=== PATIENT | female | born 1990 | race Caucasian/White ===

== ENCOUNTER 2022-03-31 21:26 | Emergency (ER) | payer MEDICAID ==
[~2022-03-31] VITALS: Ht 152.4 cm; Wt 65.8 kg
[2022-03-31 21:35] VITALS: BP_SYST 151
--- NOTE | 2022-03-31 21:35 | NUR ---
Patient to ER bed 7 to gown for evaluation. Side rails up. Report given to Debby LARA.
--- NOTE | 2022-03-31 21:36 | NUR ---
ER at bedside examining patient.
[2022-03-31] MEDS ORDERED: NACL 0.9% 1,000 ML IV ONE (21:45)
--- NOTE | 2022-03-31 21:46 | NUR ---
XRAY AT BEDSIDE.
--- NOTE | 2022-03-31 22:00 | NUR ---
LAB AT BEDSIDE OBTAINING LABS
--- NOTE | 2022-03-31 22:15 | NUR ---
PATIENT TAKEN TO ULTRASOUND AT THIS TIME.
[2022-03-31 22:31] LABS: BASOPHILS % (AUTO) 0.5 % (0.0-2.0); EOSINOPHILS % (AUTO) 0.4 % (0.0-4.0); HEMATOCRIT 33.7 % (36-48); HEMOGLOBIN 11.3 g/dL (12.0-16.0); LYMPHOCYTES # (AUTO) 1.8 K/uL (1.0-5.5); LYMPHOCYTES % (AUTO) 23.4 % (20.5-51.5); MEAN CORPUSCULAR HEMOGLOBIN 26 pg (27-31); MEAN CORPUSCULAR HGB CONC 34 % (32-36); MEAN CORPUSCULAR VOLUME 79 fL (79.0-98.0); MONOCYTES # (AUTO) 0.6 K/uL (0.0-1.0); MONOCYTES % (AUTO) 8.2 % (1.7-9.3); NEUTROPHILS # (AUTO) 5.3 K/uL (1.8-7.7); NEUTROPHILS % (AUTO) 67.5 % (40.0-70.0); PLATELET COUNT (AUTO) 150 K/uL (130-430); RED BLOOD CELL COUNT(AUTO) 4.27 MIL/uL (4.2-6.2); RED CELL DISTRIBUTION WIDTH 13.3 % (9.0-15.0); WHITE BLOOD COUNT (AUTO) 7.8 K/uL (4.8-10.8)
[2022-03-31 22:41] LABS: ANION GAP 10 (5-15); CALCIUM 7.8 mg/dL (8.4-11.0); CHLORIDE 105 mmol/L (98-107); CREATININE 0.43 mg/dL (0.55-1.30); GFR AFRICAN AMERICAN 222 mL/min (>90); GLUCOSE 107 mg/dL (70-99); POTASSIUM 3.1 mmol/L (3.5-5.1); SODIUM SERUM 138 mmol/L (136-145); UREA NITROGEN, BLOOD 10 mg/dL (8-21)
[2022-03-31 22:56] LABS: ALANINE AMINOTRANSFERASE 15 U/L (12-78); ALBUMIN 2.5 g/dL (3.4-4.8); FREE T4 (FREE THYROXINE) 3.6 ng/dl (0.8-1.5); THYROID STIMULATING HORMONE 0.01 uIu/mL (0.36-3.74)
[2022-03-31 23:17] LABS: INR 1.1 (0.8-1.2); PROTHROMBIN TIME 10.8 SECS (9.5-12.5)
[2022-03-31 23:20] LABS: ASPARTATE AMINOTRANSFERASE 11 U/L (10-37); TOTAL BILIRUBIN 0.2 mg/dL (0.0-1.0)
--- NOTE | 2022-03-31 23:55 | NUR ---
DR. DAWN SPEAKING TO PATIENT IN ROOM.
[2022-04-01] MEDS ORDERED: NACL 0.9% 1,000 ML IV ONE (00:15)
--- NOTE | 2022-04-01 00:16 | NUR ---
Called Dr. Ismael Roberts .
[2022-04-01 00:44] VITALS: BP_SYST 133
--- NOTE | 2022-04-01 01:00 | NUR ---
Patient given written and verbal discharge instructions and verbalizes understanding. ER MD discussed with patient the results and treatment provided. Patient in stable condition. ID arm band removed. IV catheter removed intact and dressing applied, no active bleeding. Rx of N/A given. Patient educated on pain management and to follow up with PMD. Pain Scale . Opportunity for questions provided and answered. Medication side effect fact sheet provided.
== END 2022-04-01 00:59 | disposition left against medical advice (07) ==
LOC: SED 21:26
DX: O99.282 Endocrine, nutritional and metabolic diseases complicating pregnancy, second trimester (principal); O99.412 Diseases of the circulatory system complicating pregnancy, second trimester; E07.9 Disorder of thyroid, unspecified; Z88.0 Allergy status to penicillin; Z3A.15 15 weeks gestation of pregnancy
CPT/HCPCS: 99285; 93970; 96360; 76805; 71045; 80053; 82550; 83880; 84439; 84443; 85025; 85379; 85610; 85730; 84484; 36415; 93005; 96361; J7030 ×2

== ENCOUNTER 2022-04-16 22:05 | Emergency (ER) | payer MEDICAID ==
[~2022-04-16] VITALS: Ht 154.9 cm; Wt 64.9 kg
[2022-04-16 22:05] VITALS: BP_SYST 101
[2022-04-16] MEDS ORDERED: NACL 0.9% 1,000 ML IV ONE (22:30)
[2022-04-17 00:18] LABS: FREE T4 (FREE THYROXINE) 4.1 ng/dl (0.8-1.5); THYROID STIMULATING HORMONE < 0.01 uIu/mL (0.36-3.74)
[2022-04-17 00:22] LABS: HCG,QUANTITATIVE 11105 mIU/ML (0-6)
[2022-04-17 00:54] LABS: BILIRUBIN,URINE NEGATIVE (NEGATIVE); CLARITY/URINE CLEAR (CLEAR); COLOR,URINE YELLOW (YELLOW); GLUCOSE,URINE NEGATIVE (NEGATIVE); KETONES,URINE 2+ (NEGATIVE); LEUKOCYTE ESTERASE ,URINE NEGATIVE (NEGATIVE); NITRITE, URINE NEGATIVE (NEGATIVE); PROTEIN URINE 2+ (NEGATIVE); UROBILINOGEN,URINE 0.2 (0.2-1.0)
[2022-04-17 00:55] LABS: BLOOD, URINE TRACE (NEGATIVE)
[2022-04-17 00:58] LABS: BACTERIA,URINE None Seen /HPF (None Seen); RBC,URINE 0-3 /HPF (0-3); WBC,URINE NONE SEEN /HPF (0-3)
[2022-04-17 01:00] LABS: HYALINE CASTS, URINE None Seen /LPF (None Seen)
[2022-04-17 01:23] VITALS: BP_SYST 101
== END 2022-04-17 01:23 | disposition left against medical advice (07) ==
LOC: SED 22:05
DX: O99.282 Endocrine, nutritional and metabolic diseases complicating pregnancy, second trimester (principal); Z3A.17 17 weeks gestation of pregnancy
CPT/HCPCS: 99285; 96360; 76805; 81000; 84702; 84439; 84443; 36415; 93005; J7030

== ENCOUNTER 2023-02-27 02:30 | Emergency (ER) | payer MEDICAID ==
[~2023-02-27] VITALS: Ht 154.9 cm; Wt 66.2 kg
[2023-02-27 02:35] VITALS: BP_SYST 114
--- NOTE | 2023-02-27 02:35 | NUR ---
Patient triaged and placed in ER bed 4 for evaluation. Vital signs updated, denied any acute distress at this time. Report given to ANTONIO LARA for continuity of care. Instructed to notify ED staff for any changes in condition or worsening of symptoms. Patient verbalized understanding.
--- NOTE | 2023-02-27 02:50 | NUR ---
Dr. SINGLETON at bedside examining the patient.
[2023-02-27] MEDS ORDERED: NACL 0.9% 1,000 ML IV ONE ×2 (03:00→03:45)
--- NOTE | 2023-02-27 03:00 | NUR ---
FIRST CONTACT WITH PT. ASSESSMENT COMPLETED. AWAITING ADDITIONAL MD EVAL AND ORDERS.
[2023-02-27] MEDS ORDERED: PROPRANOLOL 1 MG/ML IVP ONE (04:45)
--- NOTE | 2023-02-27 05:00 | NUR ---
AT BEDSIDE FOR EVALUATION. NEW RUFINO ORDER.
--- NOTE | 2023-02-27 05:38 | NUR ---
Patient given written and verbal discharge instructions and verbalizes understanding. ER MD SWIFT discussed with patient the results and treatment provided. Patient in stable condition. ID arm band removed. IV catheter removed intact and dressing applied, no active bleeding. Rx of NONE given. Patient educated on pain management and to follow up with PMD. Pain Scale 0 . Opportunity for questions provided and answered. Medication side effect fact sheet provided.
[2023-02-27 05:41] VITALS: BP_SYST 118
== END 2023-02-27 05:38 | disposition home or self-care (01) ==
LOC: SED 02:30
DX: R00.0 Tachycardia, unspecified (principal); R00.2 Palpitations; R42 Dizziness and giddiness; R82.998 Other abnormal findings in urine; Z88.0 Allergy status to penicillin; Z79.899 Other long term (current) drug therapy
CPT/HCPCS: 99283; 96374; 96361; 93005; J1800; J7030

== ENCOUNTER 2023-03-17 22:24 | Emergency (ER) | payer MEDICAID ==
[~2023-03-17] VITALS: Ht 149.9 cm; Wt 65.8 kg
[2023-03-17 22:25] VITALS: BP_SYST 133; PULSE 111; RESP 18; TEMP 98.1; O2SAT 99
[2023-03-17] MEDS ORDERED: PROPRANOLOL 1 MG/ML IVP ONE (23:00)
[2023-03-17] MEDS ORDERED: NACL 0.9% 1,000 ML IV ONE (23:00)
[2023-03-17 23:09] LABS: BASOPHILS % (AUTO) 0.3 % (0.0-2.0); EOSINOPHILS % (AUTO) 1.1 % (0.0-4.0); HEMATOCRIT 35.9 % (36-48); HEMOGLOBIN 11.4 g/dL (12.0-16.0); LYMPHOCYTES % (AUTO) 46.6 % (20.5-51.5); MEAN CORPUSCULAR HEMOGLOBIN 25 pg (27-31); MEAN CORPUSCULAR HGB CONC 32 % (32-36); MEAN CORPUSCULAR VOLUME 79 fL (79.0-98.0); MONOCYTES # (AUTO) 0.5 K/uL (0.0-1.0); MONOCYTES % (AUTO) 12.1 % (1.7-9.3); NEUTROPHILS # (AUTO) 1.7 K/uL (1.8-7.7); NEUTROPHILS % (AUTO) 39.9 % (40.0-70.0); PLATELET COUNT (AUTO) 173 K/uL (130-430); RED BLOOD CELL COUNT(AUTO) 4.55 MIL/uL (4.2-6.2); RED CELL DISTRIBUTION WIDTH 13.6 % (9.0-15.0); WHITE BLOOD COUNT (AUTO) 4.3 K/uL (4.8-10.8)
[2023-03-17 23:30] LABS: ANION GAP 8 (5-15); CALCIUM 8.4 mg/dL (8.4-11.0); CHLORIDE 104 mmol/L (98-107); GFR AFRICAN AMERICAN 334 mL/min (>90); GLUCOSE 95 mg/dL (74-106); UREA NITROGEN, BLOOD 10 mg/dL (8-21)
[2023-03-17 23:35] LABS: FREE T4 (FREE THYROXINE) 9.8 ng/dL (0.6-1.6); THYROID STIMULATING HORMONE < 0.01 uIu/mL (0.34-4.82)
[2023-03-17] MEDS ORDERED: METH-374 PO (23:58)
[2023-03-18 00:23] VITALS: BP_SYST 126; PULSE 109; RESP 15; TEMP 98.1; O2SAT 99
[2023-03-19] MEDS ORDERED: IBUP-1969 PO (23:07)
== END 2023-03-18 00:23 | disposition home or self-care (01) ==
LOC: SED 22:24
DX: R00.0 Tachycardia, unspecified (principal); R00.2 Palpitations; E05.90 Thyrotoxicosis, unspecified without thyrotoxic crisis or storm; F41.9 Anxiety disorder, unspecified; R06.02 Shortness of breath; Z88.0 Allergy status to penicillin; Z79.899 Other long term (current) drug therapy
CPT/HCPCS: 99283; 96374; 96361; 80048; 84439; 84443; 85025; 36415; J1800; J7030

== ENCOUNTER 2023-03-19 21:42 | Emergency (ER) | payer MEDICAID ==
[~2023-03-19] VITALS: Ht 149.9 cm; Wt 65.3 kg
[~2023-03-19 21:42] MED LIST: METH-374 PO
[2023-03-19 22:29] VITALS: BP_SYST 135; PULSE 110; RESP 18; TEMP 98.8; O2SAT 99
--- NOTE | 2023-03-19 22:36 | NUR ---
Patient triaged and placed in waiting room. VSS and patient appears in no acute distress at this time. Accompanied by self, awaiting available bed, and MD notified of need for MSE.
--- NOTE | 2023-03-19 22:42 | NUR ---
PT BIB FRIEND FROM HOME C/O LT FOOT PAIN AND CRACKED ACRYLIC NAIL. PT STATES PAIN IS 8/10 AND IS THROBBING. PT STATES DIFFICULTY MOVING FOOT. PT HX OF HYPOTHYROIDISM. PT VSS RESTING IN HALLWAY
--- NOTE | 2023-03-19 22:45 | NUR ---
ER at bedside examining patient.
--- NOTE | 2023-03-19 22:47 | NUR ---
PT TO RADIOLOGY FOR X RAY
--- NOTE | 2023-03-19 22:58 | NUR ---
PATIENT MOVED TO BED 2
[2023-03-19] MEDS ORDERED: IBUP-1969 PO (23:07)
--- NOTE | 2023-03-19 23:16 | NUR ---
WOUND DRESSED WITH 2X2S, ROLLED GAUZE AND COBAN. PATIEN TOLERATED WELL
--- NOTE | 2023-03-19 23:20 | NUR ---
[employer]G SHOE TO AFFECTED FOOT.
[2023-03-19 23:52] VITALS: BP_SYST 135; PULSE 110; RESP 18; TEMP 98.8; O2SAT 99
--- NOTE | 2023-03-19 23:54 | NUR ---
Patient given written and verbal discharge instructions and verbalizes understanding. ER MD discussed with patient the results and treatment provided. Patient in stable condition. ID arm band removed. Rx of IBUPROFEN given. Patient educated on SUBUNGUAL HEMATOMA AND CRUSH FOOT INJURY and to follow up with PMD. Pain Scale 4. Opportunity for questions provided and answered. Medication side effect fact sheet provided.
== END 2023-03-19 23:50 | disposition home or self-care (01) ==
LOC: SED 21:42
DX: S90.212A Contusion of left great toe with damage to nail, initial encounter (principal); S97.82XA Crushing injury of left foot, initial encounter; Z88.0 Allergy status to penicillin; Z79.899 Other long term (current) drug therapy; W20.8XXA Other cause of strike by thrown, projected or falling object, initial encounter; Y93.G3 Activity, cooking and baking; Y92.89 Other specified places as the place of occurrence of the external cause; Y99.8 Other external cause status
CPT/HCPCS: 99283

== ENCOUNTER 2023-09-06 23:37 | Emergency (ER) | payer MEDICAID ==
[~2023-09-06] VITALS: Ht 149.9 cm; Wt 68.9 kg
[~2023-09-06 23:37] MED LIST changes: +IBUP-1969 PO
[2023-09-07 00:13] VITALS: BP_SYST 120; PULSE 110; RESP 18; TEMP 98.3; O2SAT 98
== END 2023-09-07 01:28 | disposition home or self-care (01) ==
LOC: SED 23:37
DX: R22.0 Localized swelling, mass and lump, head (principal); Z53.21 Procedure and treatment not carried out due to patient leaving prior to being seen by health care provider
CPT/HCPCS: 99281

== ENCOUNTER 2024-01-06 03:30 | Emergency (ER) | payer MEDICAID ==
[~2024-01-06] VITALS: Ht 149.9 cm; Wt 68.0 kg
[2024-01-06 03:33] VITALS: BP_SYST 122; PULSE 100; RESP 18; TEMP 98.4; O2SAT 96
[2024-01-06 04:13] LABS: BILIRUBIN,URINE NEGATIVE (NEGATIVE); CLARITY/URINE CLEAR (CLEAR); COLOR,URINE YELLOW (YELLOW); GLUCOSE,URINE NEGATIVE (NEGATIVE); KETONES,URINE NEGATIVE (NEGATIVE); LEUKOCYTE ESTERASE ,URINE NEGATIVE (NEGATIVE); NITRITE, URINE NEGATIVE (NEGATIVE); PROTEIN URINE NEGATIVE (NEGATIVE)
[2024-01-06 04:24] LABS: BASOPHILS % (AUTO) 0.3 % (0.0-2.0); EOSINOPHILS # (AUTO) 0.1 K/uL (0.0-0.4); EOSINOPHILS % (AUTO) 1.5 % (0.0-4.0); HEMATOCRIT 38.7 % (36-48); HEMOGLOBIN 12.6 g/dL (12.0-16.0); LYMPHOCYTES # (AUTO) 2.6 K/uL (1.0-5.5); LYMPHOCYTES % (AUTO) 44.2 % (20.5-51.5); MEAN CORPUSCULAR HEMOGLOBIN 26 pg (27-31); MEAN CORPUSCULAR HGB CONC 33 % (32-36); MEAN CORPUSCULAR VOLUME 79 fL (79.0-98.0); MONOCYTES # (AUTO) 0.6 K/uL (0.0-1.0); MONOCYTES % (AUTO) 10.4 % (1.7-9.3); NEUTROPHILS # (AUTO) 2.5 K/uL (1.8-7.7); NEUTROPHILS % (AUTO) 43.6 % (40.0-70.0); PLATELET COUNT (AUTO) 213 K/uL (130-430); RED BLOOD CELL COUNT(AUTO) 4.92 MIL/uL (4.2-6.2); RED CELL DISTRIBUTION WIDTH 13.6 % (9.0-15.0); WHITE BLOOD COUNT (AUTO) 5.8 K/uL (4.8-10.8)
[2024-01-06 04:24] LABS: BACTERIA,URINE None Seen /HPF (None Seen); BLOOD, URINE TRACE (NEGATIVE); RBC,URINE 0-3 /HPF (0-3); WBC,URINE 0-3 /HPF (0-3)
[2024-01-06 04:45] LABS: CALCIUM 8.5 mg/dL (8.4-11.0); CREATININE 0.34 mg/dL (0.55-1.30); POTASSIUM 3.5 mmol/L (3.5-5.1)
[2024-01-06 05:08] VITALS: BP_SYST 109; PULSE 108; RESP 18; TEMP 97.9; O2SAT 100
== END 2024-01-06 05:08 | disposition home or self-care (01) ==
LOC: SED 03:30
DX: N93.9 Abnormal uterine and vaginal bleeding, unspecified (principal); R10.30 Lower abdominal pain, unspecified; Z88.0 Allergy status to penicillin; Z79.899 Other long term (current) drug therapy
CPT/HCPCS: 36415; 76856; 80048; 81000; 81001; 81015; 81025; 84702; 85025; 86900; 86901; 99284